=== PATIENT | male | born 1955 | race Caucasian/White ===

== ENCOUNTER 2019-03-19 07:03 | Emergency (ER) | payer MEDICAID ==
[~2019-03-19] VITALS: Ht 182.9 cm; Wt 87.0 kg
[2019-03-19 07:06] VITALS: BP 131/74
--- NOTE | 2019-03-19 07:15 | NUR ---
PT WITH C/O COUGH, STATES HE HAS THICK GREEN SPUTUM WHILE COUGHING. PT RUN OUT OF MEDICATION FOR COUGH. PT WITH AUDIBLE WHEEZING, SATING 96% RA. NAD. PT UP WALKING IN , DENIES CP. ERPROVIDER IN TO EVAL PT
[2019-03-19] MEDS ORDERED: KETOROLAC 30 MG/1 ML ONE (07:54)
[2019-03-19] MEDS ORDERED: KETOROLAC 30 MG/1 ML IM ONE (08:00)
[2019-03-19] MEDS ORDERED: ALBUTEROL/IPRATROPIUM 2.5MG/0.5MG, 3 ML NEB ONE (08:00)
--- NOTE | 2019-03-19 08:00 | NUR ---
PT MEDICATED PER MAR, TAKEN TO IMAGING NOW
[2019-03-19] MEDS ORDERED: ALBUTEROL/IPRATROPIUM 2.5MG/0.5MG, 3 ML ONE (08:02)
[2019-03-19 08:16] LABS: BASOPHILS # (AUTO) 0.06 x10^3/uL (0-0.1); BASOPHILS % (AUTO) 1 % (0-1); EOSINOPHILS # (AUTO) 0.16 x10^3/uL (0-0.4); EOSINOPHILS % (AUTO) 2 % (1-7); LYMPHOCYTES # (AUTO) 1.19 x10^3/uL (1-3.4); LYMPHOCYTES % (AUTO) 12 % (22-44); MD NO; MEAN CORPUSCULAR HEMOGLOBIN 29.7 pg (27.5-34.5); MEAN CORPUSCULAR HGB CONC 33.1 g/dL (33.2-36.2); MEAN CORPUSCULAR VOLUME 89.6 fL (81-97); MEAN PLATELET VOLUME 8.5 fL (7.4-10.4); MONOCYTES # (AUTO) 0.75 x10^3/uL (0.2-0.8); MONOCYTES % (AUTO) 8 % (2-9); NEUTROPHILS # (AUTO) 7.65 x10^3/uL (1.8-6.8); NEUTROPHILS % (AUTO) 78 % (42-75); PLATELET COUNT 328 x10^3/uL (130-400); RED CELL DISTRIBUTION WIDTH 13.6 % (9.4-14.8)
[2019-03-19 08:26] LABS: ALANINE AMINOTRANSFERASE 35 U/L (12-78); ALBUMIN 2.8 g/dL (3.4-5.0); ANION GAP 3 mmol/L (5-15); CALCIUM 8.8 mg/dL (8.5-10.1); CHLORIDE 106 mmol/L (98-107); CREATININE 0.93 mg/dL (0.7-1.3)
[2019-03-19 08:30] LABS: ALKALINE PHOSPHATASE 95 U/L (45-117); BILIRUBIN,TOTAL 0.5 mg/dL (0.2-1.0); TOTAL PROTEIN 7.7 g/dL (6.4-8.2); TROPONIN I < 0.015 ng/mL (0.000-0.045)
== END 2019-03-19 09:23 | disposition home or self-care (01) ==
LOC: ED 08:38
DX: J45.30 Mild persistent asthma, uncomplicated (principal); J15.9 Unspecified bacterial pneumonia; F17.210 Nicotine dependence, cigarettes, uncomplicated; E78.5 Hyperlipidemia, unspecified
CPT/HCPCS: 36415; 71046; 80053; 84484; 85025; 93005; 94640; 96372; 99284; J1885; J7620

== ENCOUNTER 2019-04-15 13:11 | Emergency (ER) | payer MEDICAID ==
[~2019-04-15] VITALS: Ht 182.9 cm; Wt 83.3 kg
--- NOTE | 2019-04-15 13:38 | NUR ---
PT AMBULATED TO RME7 PER PEDIS. PT C/O RASH ACROSS FOREHEAD. PT STATES "IT STARTED OUT REAL SMALL, AND I JUST THOUGHT IT WAS FROM MY HARD HAT. I WAS TAKING SOME MEDICATIONS FOR MY PNEUMONIA 5 WEEKS AGO, AND IT GOT BETTER. NOW IT'S BACK WITH A VENGENANCE, AND IT IS AFFECTING MY EYES". ASSESSMENT PERFORMED. SALENA GOODMAN IN TO ASSESS PATIENT.
--- NOTE | 2019-04-15 13:49 | NUR ---
DISCHARGE INSTRUCTIONS PLUS 2 PRESCRIPTIONS GIVEN. PT VERBALIZES UNDERSTANDING OF ALL INSTRUCTIONS AND FOLLOW UP. PT AMBULATED OUT OF ED PER PEDIS.
[2019-04-15 13:50] VITALS: BP 125/77
== END 2019-04-15 13:52 | disposition home or self-care (01) ==
LOC: ED 13:34
DX: R21 Rash and other nonspecific skin eruption (principal); L30.9 Dermatitis, unspecified
CPT/HCPCS: 99283

== ENCOUNTER 2019-08-08 13:32 | Emergency (ER) | payer MEDICAID ==
[~2019-08-08] VITALS: Ht 182.9 cm; Wt 83.0 kg
--- NOTE | 2019-08-08 14:18 | NUR ---
63 Y/O MALE PRESENTS TO ED WITH C/O WOUND. "MY RIGHT FOOT HAS A BIG WOUND SINCE THURSDAY. ABOUT TWO YEARS AGO I WAS SCOOPING [employer] OFF A ROOF AND THIS HAPPENS TO MY FOOT ABOUT EVERY SIX MONTHS SINCE THEN. IT'S NEVER BEEN THIS BAD." NO C/O N/V/D, TRAUMA, SYNCOPE, CP, F/C. PT PLACED ON CONT PULSE OX.,NIBP. Addendum: 08/08/19 at 1425 by [email or web address] TASK RN:
--- NOTE | 2019-08-08 14:25 | NUR ---
TASK RN: REPORT TO HOLLY SIDDIQUI RN.
--- NOTE | 2019-08-08 14:34 | NUR ---
AT BEDSIDE FOR ASSESSMENT
--- NOTE | 2019-08-08 14:50 | NUR ---
IV PLACED, LABS AND BLOOD CULTURES DRAWN. CONNECTED TO MONITORING, VSS AT THIS TIME. CALL LIGHT WTIHIN REACH. WILL CONTINUE TO MONITOR
--- NOTE | 2019-08-08 14:52 | NUR ---
RAD AT BEDSIDE
[2019-08-08] MEDS ORDERED: CEFTRIAXONE PMX 1GM/50ML 50 ML ONE (14:54)
[2019-08-08] MEDS ORDERED: CEFTRIAXONE PMX 1GM/50ML 50 ML IVPB ONE (15:00)
[2019-08-08] MEDS ORDERED: SODIUM CHLORIDE FLUSH 10ML SYR IVF ONE (15:00)
--- NOTE | 2019-08-08 15:01 | NUR ---
TASK RN NOTE: IV ABX HUNG PER ORDER. PT USING CELL PHONE. LIGHTS DIMMED AND HOB TO LEVEL OF COMFORT. CALL LIGHT IN REACH. AWAITING COMPLETION OF ABX AND LAB RESULTS.
[2019-08-08 15:09] LABS: BASOPHILS # (AUTO) 0.06 x10^3/uL (0-0.1); BASOPHILS % (AUTO) 1 % (0-1); EOSINOPHILS # (AUTO) 0.15 x10^3/uL (0-0.4); EOSINOPHILS % (AUTO) 1 % (1-7); LYMPHOCYTES % (AUTO) 7 % (22-44); MD NO; MEAN CORPUSCULAR HEMOGLOBIN 30.1 pg (27.5-34.5); MEAN CORPUSCULAR HGB CONC 33.3 g/dL (33.2-36.2); MEAN CORPUSCULAR VOLUME 90.6 fL (81-97); MEAN PLATELET VOLUME 9.1 fL (7.4-10.4); MONOCYTES # (AUTO) 0.57 x10^3/uL (0.2-0.8); MONOCYTES % (AUTO) 5 % (2-9); NEUTROPHILS # (AUTO) 9.54 x10^3/uL (1.8-6.8); NEUTROPHILS % (AUTO) 86 % (42-75); PLATELET COUNT 174 x10^3/uL (130-400); RED BLOOD COUNT 5.39 x10^6/uL (4.38-5.82); RED CELL DISTRIBUTION WIDTH 13.9 % (9.4-14.8)
[2019-08-08 15:11] LABS: ALBUMIN 3.1 g/dL (3.4-5.0); ANION GAP 5 mmol/L (5-15); CALCIUM 8.4 mg/dL (8.5-10.1); CHLORIDE 103 mmol/L (98-107)
--- NOTE | 2019-08-08 15:34 | NUR ---
MD TO BEDSIDE TO RECHECK PT. PLAN TO DC
[2019-08-08 15:48] VITALS: BP 101/67
== END 2019-08-08 15:50 | disposition home or self-care (01) ==
LOC: ED 14:08
DX: L03.115 Cellulitis of right lower limb (principal); J45.909 Unspecified asthma, uncomplicated; F17.200 Nicotine dependence, unspecified, uncomplicated; Z90.49 Acquired absence of other specified parts of digestive tract
CPT/HCPCS: 36415; 73630; 80048; 82040; 83605; 85025; 87040; 96365; 99284; J0696

== ENCOUNTER 2019-08-21 16:30 | Emergency (ER) | payer MEDICAID ==
[~2019-08-21] VITALS: Ht 182.9 cm; Wt 96.4 kg
[2019-08-21 18:04] VITALS: BP 102/66
[2019-08-21 18:37] LABS: ALANINE AMINOTRANSFERASE 30 U/L (12-78); ALBUMIN 3.3 g/dL (3.4-5.0); ANION GAP 3 mmol/L (5-15); CALCIUM 8.6 mg/dL (8.5-10.1); CHLORIDE 102 mmol/L (98-107); CREATININE 1.26 mg/dL (0.7-1.3)
[2019-08-21 18:39] LABS: ALKALINE PHOSPHATASE 99 U/L (45-117); BILIRUBIN,TOTAL 0.7 mg/dL (0.2-1.0); TOTAL PROTEIN 7.8 g/dL (6.4-8.2)
[2019-08-21 18:52] LABS: MEAN CORPUSCULAR HEMOGLOBIN 29.9 pg (27.5-34.5); MEAN CORPUSCULAR HGB CONC 32.9 g/dL (33.2-36.2); MEAN CORPUSCULAR VOLUME 90.8 fL (81-97); MEAN PLATELET VOLUME 8.4 fL (7.4-10.4); PLATELET COUNT 299 x10^3/uL (130-400); RED BLOOD COUNT 5.24 x10^6/uL (4.38-5.82); RED CELL DISTRIBUTION WIDTH 13.9 % (9.4-14.8)
[2019-08-21 19:15] LABS: MD YES
[2019-08-21 19:17] LABS: <PLATELET ESTIMATE> ADEQUATE; <PLT MORPHOLOGY> NORMAL PLT MORPH; <RBC MORPHOLOGY> NORMAL; BAND#(MANUAL) 2.44 x10^3/uL; BANDS%(MANUAL) 9 % (0-7); LYMPH#(MANUAL) 0.81 x10^3/uL (1-3.4); LYMPHS% (MANUAL) 3 % (22-44); MONOS#(MANUAL) 1.08 x10^3/uL (0.3-2.7); MONOS% (MANUAL) 4 % (2-9); SEG#(MANUAL) 22.76 x10^3/uL (1.8-6.8); SEGS% (MANUAL) 84 % (42-75)
--- NOTE | 2019-08-21 19:20 | NUR ---
pt. nil x1@ 192
--- NOTE | 2019-08-21 19:30 | NUR ---
NIL X 2 1929
--- NOTE | 2019-08-21 19:41 | NUR ---
PT BACK IN LOBBY
[2019-08-21] MEDS ORDERED: SODIUM CHLORIDE FLUSH 10ML SYR IVF ONE (20:30)
[2019-08-21] MEDS ORDERED: SODIUM CHLORIDE 0.9% 1,000ML IVBOLUS ONE (20:30)
== END 2019-08-21 21:27 | disposition left against medical advice (07) ==
LOC: ED 19:04
DX: L03.115 Cellulitis of right lower limb (principal); M79.671 Pain in right foot; G89.29 Other chronic pain; D72.829 Elevated white blood cell count, unspecified; E78.5 Hyperlipidemia, unspecified; J45.909 Unspecified asthma, uncomplicated; Z90.49 Acquired absence of other specified parts of digestive tract
CPT/HCPCS: 36415; 73630; 80053; 83605; 85025; 87806; 99284; J7512; G0475

== ENCOUNTER 2020-05-03 13:58 | Emergency (ER) | payer MEDICAID ==
[~2020-05-03] VITALS: Ht 182.9 cm; Wt 83.3 kg
--- NOTE | 2020-05-03 14:06 | NUR ---
PT TO ROOM FROM LOBBY
[2020-05-03] MEDS ORDERED: PROPARACAINE OPHTH 0.5%, 15ML ONE (14:10)
--- NOTE | 2020-05-03 14:16 | NUR ---
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 he complains of pain and watering of the eye. He can see but the watering blurs his vision,.
[2020-05-03] MEDS ORDERED: EYE WASH SOLUTION 120ML ONE (14:34)
--- NOTE | 2020-05-03 16:02 | NUR ---
PT STATES HE FEELS A LITTLE BETTER AND IS READY TO GO HOME AFTER THE PROVIDER REMOVED THE SMALL PIECE OF METAL.
[2020-05-03 16:57] VITALS: BP 128/82
== END 2020-05-03 16:59 | disposition home or self-care (01) ==
LOC: ED 16:42
DX: T15.02XA Foreign body in cornea, left eye, initial encounter (principal); J45.909 Unspecified asthma, uncomplicated; E78.5 Hyperlipidemia, unspecified; F17.200 Nicotine dependence, unspecified, uncomplicated; Z90.89 Acquired absence of other organs; X58.XXXA Exposure to other specified factors, initial encounter; Y93.89 Activity, other specified; Y92.89 Other specified places as the place of occurrence of the external cause; Y99.8 Other external cause status
CPT/HCPCS: 99283; 99284